=== PATIENT | male | born 2000 | race African-American/Black ===

== ENCOUNTER 2022-09-20 22:09 | Emergency (ER) | payer OTHER ==
[2022-09-20 23:31] LABS: Absolute Lymphocytes (CBC) 0.9 K/uL (0.7-4.9); Hematocrit 41.6 % (39.6-49.0); Lymphocytes % 6.4 % (15.3-44.8); MCV 91.2 fL (80-100); MPV 8.8 fL (7.6-11.3); RBC Red Blood Cell Count 4.56 M/uL (4.33-5.43)
[2022-09-20 23:48] LABS: Albumin 4.6 g/dL (3.4-5.0); Bilirubin Total 0.2 mg/dL (0.2-1.0); Magnesium 2.2 mg/dL (1.6-2.4); Potassium 3.6 mEq/L (3.5-5.1); Protein, Total 8.1 g/dL (6.4-8.2)
--- NOTE | 2022-09-20 23:58 | EDPHYS ---
Physician Documentation [facility] Name: Christiano Salinas Age: 22 yrs Sex: Male : 2000 Arrival Date: 09/20/2022 Time: 22:09 Bed 4 Private MD: ED Physician Rikki Balderas HPI: 09/21 01:08 This 22 yrs old Black Male presents to ER via EMS with complaints of Seizure. rt 01:08 History limited due to patient with nonverbal status. He does have a history of seizure rt disorder, takes ox carbamazepine. Was recently stopped on Keppra due to increased agitation. The patient had a 3 seizure episodes today which has not entirely atypical for him. These were terminated with intranasal Versed. He had return to baseline neurologic status. No recent illnesses or other acute complaints were described. Symptoms are moderate in severity, no other aggravating alleviating factors.. Historical: - Home Meds: 09/20 22:13 oxcarbazepine 300 mg oral tablet 2 times per day [Active]; aa9 - PMHx: 22:13 Seizure; aa9 - Social history:: Smoking status: unknown. - Family history:: not pertinent. ROS: 09/21 01:08 Unable to obtain ROS due to patient's inability to understand questions. rt Exam: 01:08 Head/Face: Normocephalic, atraumatic. Chest/axilla: Normal chest wall appearance and rt motion. Nontender with no deformity. No lesions are appreciated. Cardiovascular: Regular rate and rhythm with a normal S1 and S2. No gallops, murmurs, or rubs. Normal PMI, no JVD. No pulse deficits. Respiratory: Lungs have equal breath sounds bilaterally, clear to auscultation and percussion. No rales, rhonchi or wheezes noted. No increased work of breathing, no retractions or nasal flaring. Abdomen/GI: Soft, non-tender, with normal bowel sounds. No distension or tympany. No guarding or rebound. No evidence of tenderness throughout. 01:08 Constitutional: The patient appears Nonverbal, no acute distress 01:08 Neuro: Moves all 4 EXTRNo obvious cranial nerve deficits, moves all 4 extremities equally. Vital Signs: 09/20 22:10 BP 119 / 85; Pulse 106; Resp 16; Temp 97.5; Pulse Ox 97% on R/A; aa9 MDM: 22:10 Patient medically screened. rt 09/21 01:08 Differential Diagnosis Breakthrough seizure, electrolyte disturbance. Data reviewed: rt vital signs, nurses notes, lab test result(s). Test considered but Not performed: CT: Patient at baseline mental status, no new focal deficits, CT scan not indicated.. Care significantly affected by the following chronic conditions: Seizure disorder, autism. Counseling: I had a detailed discussion with the patient and/or guardian regarding: the historical points, exam findings, and any diagnostic results supporting the discharge/admit diagnosis, lab results, the need for outpatient follow up. 09/20 22:10 Order name: CBC with Diff; Complete Time: 23:40 rt 09/20 22:10 Order name: CMP; Complete Time: 23:53 rt 09/20 22:10 Order name: Magnesium; Complete Time: 23:53 rt Administered Medications: No medications were administered Disposition Summary: 09/20/22 23:57 Discharge Ordered Location: Home rt Problem: new rt Symptoms: are resolved rt Condition: Stable rt Diagnosis - Breakthrough Seizure rt Followup: rt - With: Private Physician - When: 2 - 3 days - Reason: Discharge Instructions: - Discharge Summary Sheet rt - Seizure, Adult rt Forms: - Medication Reconciliation Form rt - Thank You Letter rt - Antibiotic Education rt - Prescription Opioid Use rt Signatures: Dispatcher [employer] Parvin Sharma, RN RN aa9 Rikki Balderas MD MD rt
--- NOTE | 2022-09-20 23:58 | ER ---
Nurse's Notes [facility] Name: Christiano Salinas Age: 22 yrs Sex: Male : 2000 Arrival Date: 09/20/2022 Time: 22:09 Bed 4 Private MD: Diagnosis: Breakthrough Seizure Presentation: 09/20 22:10 Chief complaint: EMS states: toned out to a 22 Y M nonverbal autistic with history of aa9 seizures, mother reports 3 seizures tonight, given 2 rounds of intranasal 5 mg versed. mother reports Keppra d/c about a month ago. Ebola Screen: No symptoms or risks identified at this time. Initial Sepsis Screen: Does the patient meet any 2 criteria? No. Patient's initial sepsis screen is negative. Does the patient have a suspected source of infection? No. Patient's initial sepsis screen is negative. Onset of symptoms was September 20, 2022. Care prior to arrival: IV initiated. 20 GA, in the left forearm, Glucose check: 125. 22:10 Method Of Arrival: EMS: [facility] aa9 22:10 Acuity: GUY 3 aa9 09/21 00:15 Risk Assessment: Do you want to hurt yourself or someone else? Unable to obtain. vc1 Triage Assessment: 09/20 22:14 General: Appears uncomfortable, slender, Behavior is cooperative, quiet. Neuro: Level aa9 of Consciousness is awake. Neuro: Moves all extremities. Facial symmetry appears normal. Cardiovascular: Patient's skin is warm and dry. Respiratory: Airway is patent Respiratory effort is even, unlabored. : No signs and/or symptoms were reported regarding the genitourinary system. Derm: Skin is intact, is healthy with good turgor. 22:14 Pain: Unable to use pain scale. Does not appear to understand pain scale. non- verbal vc1 autistic. Historical: - Home Meds: 22:13 oxcarbazepine 300 mg oral tablet 2 times per day [Active]; aa9 - PMHx: 22:13 Seizure; aa9 - Social history:: Smoking status: unknown. - Family history:: not pertinent. Screenin/14 00:11 [facility] ED Fall Risk Assessment (Adult) History of falling in the last 3 months, vc1 including since admission Yes- physiologic fall (2 pts) Confusion or Disorientation No (0 pts) Intoxicated or Sedated Yes (3 pts) Impaired Gait No (0 pts) Mobility Assist Device Used No (0 pt) Altered Elimination No (0 pt) Score/Fall Risk Level 3 or more points = High Risk Oriented to surroundings, Maintained a safe environment, Educated pt \T\ family on fall prevention, incl call for assistance when getting out of bed. Abuse screen: Denies threats or abuse. Nutritional screening: No deficits noted. Tuberculosis screening: No symptoms or risk factors identified. Vital Signs: 09/20 22:10 BP 119 / 85; Pulse 106; Resp 16; Temp 97.5; Pulse Ox 97% on R/A; aa9 ED Course: 22:10 Patient arrived in ED. aa9 22:10 Rikki Balderas MD is Attending Physician. rt 22:10 Arm band placed on. vc1 22:10 Patient has correct armband on for positive identification. Bed in low position. Call vc1 light in reach. Pulse ox on. NIBP on. 22:13 Triage completed. aa9 22:15 Maintain EMS IV. Dressing intact. Good blood return noted. Site clean \T\ dry. Gauge \T\ aa 9 site: 20 G L FA. 22:35 Parvin Mike, RN is Primary Nurse. aa9 09/21 00:15 No provider procedures requiring assistance completed. IV discontinued, intact, vc1 bleeding controlled, No redness/swelling at site. Pressure dressing applied. Administered Medications: No medications were administered Medication: 00:15 VIS not applicable for this client. vc1 Outcome: 09/20 23:57 Discharge ordered by . rt 09/21 00:15 Discharged to home ambulatory, with family. vc1 Condition: stable Discharge instructions given to family, manifold operator, Instructed on discharge instructions, follow up and referral plans. Demonstrated understanding of instructions, follow-up care. 00:31 Patient left the ED. ll3 Signatures: Gemma Ohara RN RN 3 Erika Hazel RN RN vc1 Parvin Mike, SADIQ RN aa9 Rikki Balderas MD MD rt
== END 2022-09-21 00:31 | disposition home or self-care (01) ==
LOC: ER 22:09
DX: G40.89 Other seizures (principal); Z79.899 Other long term (current) drug therapy
CPT/HCPCS: 36415; 80053; 83735; 85025; 99283